=== PATIENT | male | born 1990 | race Caucasian/White ===

== ENCOUNTER 2024-07-11 11:19 | Emergency (ER) | payer OTHER ==
[~2024-07-11] VITALS: Ht 167.6 cm; Wt 68.0 kg
[2024-07-11] MEDS ORDERED: Methadone HCL 10 MG TAB PO ONE (12:20)
== END 2024-07-11 12:27 | disposition home or self-care (01) ==
LOC: ER 11:19
DX: F11.10 Opioid abuse, uncomplicated (principal); Z59.89 Other problems related to housing and economic circumstances
CPT/HCPCS: 99281; A9270

== ENCOUNTER 2024-08-06 15:05 | Emergency (ER) | payer OTHER ==
[~2024-08-06] VITALS: Ht 170.2 cm; Wt 61.2 kg
[2024-08-06] MEDS ORDERED: Methadone HCL 10 MG TAB PO ONE (15:55)
== END 2024-08-06 16:00 | disposition home or self-care (01) ==
LOC: ER 15:05
DX: Z76.0 Encounter for issue of repeat prescription (principal); F11.91 Opioid use, unspecified, in remission
CPT/HCPCS: 99281; A9270

== ENCOUNTER 2025-01-19 12:36 | Emergency (ER) | payer OTHER ==
[~2025-01-19] VITALS: Ht 170.2 cm; Wt 61.2 kg
== END 2025-01-19 14:15 | disposition home or self-care (01) ==
LOC: ER 12:36
DX: Z76.0 Encounter for issue of repeat prescription (principal); F17.200 Nicotine dependence, unspecified, uncomplicated
CPT/HCPCS: 99281; A9270